=== PATIENT | female | born 1960 | race Caucasian/White ===

== ENCOUNTER 2025-08-16 12:30 | Outpatient (CLI) | payer MEDICARE, OTHER ==
[2025-08-16 13:08] LABS: Estimated GFR - POC 71.0
[2025-08-16] MEDS ORDERED: Iopamidol 370 76% 100 ML VIAL ONE (13:33)
== END 2025-08-16 12:31 | disposition home or self-care (01) ==
LOC: CT 12:30
PROVIDERS: ATTEND Neurological Surgery
DX: I67.1 Cerebral aneurysm, nonruptured (principal)
CPT/HCPCS: 36415; 70496; 82565; Q9967